=== PATIENT | female | born 1955 | race Caucasian/White ===

== ENCOUNTER 2017-07-18 08:09 | Emergency (ER) | payer SELFPAY ==
[~2017-07-18] VITALS: Ht 167.6 cm; Wt 53.0 kg
[~2017-07-18 08:09] MED LIST: DIAZ10 PO; METH40TA9 PO; REST30CA PO; SOMA350T PO
[2017-07-18 08:13] VITALS: BP 213/104; PULSE 97; RESP 16; TEMP 99; O2SAT 99
[2017-07-18 08:14] VITALS: BP 197/116; PULSE 91; RESP 18
[2017-07-18] MEDS ORDERED: ACETAMINOPHEN/HYDROcodone 325 MG/5 MG TAB PO ONE (08:45)
--- NOTE | 2017-07-18 08:46 | PD ---
HPI Chief Complaint: Injury Time Seen by Provider: 08:46 Travel History International Travel<30 days: No Contact w/Intl Traveler<30days: No Traveled to known affect area: No History of Present Illness HPI 62-year-old female presents emergency department complaint of left wrist pain after tripping and falling while doing laundry about 35 minutes to an hour ago. Says she turned to grab a basket and lost her balance and fell. She denies hitting her head or loss of consciousness. Denies neck pain or back pain. Denies paresthesias, loss of sensation to the affected extremity. Has not taken any medication or tried any treatments to alleviate her symptoms. Symptoms are moderate in severity. Patient's blood pressure is elevated in the ER. She denies history of hypertension and does not take medications. Denies chest pain, shortness of breath, abdominal pain, nausea, vomiting, headache, change in vision. No known allergies. Has no other medical complaints. No other modifying factors or associated signs and symptoms. PFSH Past Medical History Diminished Hearing: No Musculoskeletal: Yes (CHRONIC BACK PAIN) Tetanus Vaccination: > 5 Years Influenza Vaccination: No ?: Not Menopausal: Yes Past Surgical History Appendectomy: Yes Social History Alcohol Use: Yes (OCC) Tobacco Use: No Substance Use: No Allergies-Medications (Allergen,Severity, Reaction): Coded Allergies: No Known Allergies (Verified , 07/18/17) Reported Meds & Prescriptions Reported Meds & Active Scripts Active No Active Prescriptions or Reported Medications Review of Systems Except as stated in HPI: all other systems reviewed are Neg Physical Exam Narrative GENERAL: Well-nourished, well-developed female patient, in no acute distress SKIN: Warm and dry. HEAD: Atraumatic. Normocephalic. EYES: Pupils equal and round. No scleral icterus. No injection or drainage. ENT: Mucosa pink and moist. Airway patent. NECK: Moving freely. No tenderness on patient of the cervical spine. CARDIOVASCULAR: Regular rate. RESPIRATORY: No accessory muscle use. GASTROINTESTINAL: Flat. MUSCULOSKELETAL: Left wrist with tenderness on palpation; mildly edematous; without erythema, ecchymosis; no obvious deformity; unable to assess range of motion; sensory intact; 2+ radial pulse. Left upper extremity supple and non- tense. No obvious deformities. No clubbing. No cyanosis. BACK: No point tenderness on palpation of the thoracic or lumbar spine. NEUROLOGICAL: Awake and alert. Oriented 3. No obvious cranial nerve deficits. Motor grossly within normal limits. Normal speech. PSYCHIATRIC: Appropriate mood and affect; insight and judgment normal. Data Data Last Documented VS Vital Signs Date Time Temp Pulse Resp B/P (MAP) Pulse Ox O2 Delivery O2 Flow Rate FiO2 07/18/17 08:38 Room Air 07/18/17 08:14 91 18 197/116 (143) 07/18/17 08:13 99.0 99 Orders Orders Wrist, Complete ([id number]) (07/18/17 08:45) Acetamin-Hydrocod 325-5 Mg ([place] 5-325 (07/18/17 08:45) MDM Medical Decision Making Medical Screen Exam Complete: Yes Emergency Medical Condition: Yes Medical Record Reviewed: Yes Differential Diagnosis Fall, wrist sprain, wrist dislocation, wrist fracture, wrist injury Narrative Course 62-year-old female with left wrist injury after mechanical fall. Denies hitting her head or loss of consciousness. Denies neck pain or back pain. Lortab administered in the ER. Left wrist x-ray ordered. Patient's lipase is elevated in the ER. She denies history of hypertension and does not take medications. She is asymptomatic. Blood pressure will be rechecked. 0943: Left wrist x-ray concludes: Last 24 hours Impressions Wrist X-Ray 07/18/17 0845 Signed Impressions: Service Date/Time: Tuesday, July 18, 2017 09:19 - CONCLUSION: Soft tissue swelling without definite fracture. Frank Uriostegui MD A copy of the report was provided to the patient. Velcro wrist splint provider for support. Ibuprofen prescribed for home. Instructed patient to follow up with primary care provider. Patient verbalizes understanding and agreement with treatment plan. Patient is medically cleared and stable for discharge. Discussed reasons to return to the emergency department. Patient agrees with treatment plan. The patients vital signs are stable and the patient is stable for outpatient follow-up and treatment. Patient discharged home, stable and in no acute distress. Diagnosis Primary Impression: Fall Qualified Codes: W19.XXXA - Unspecified fall, initial encounter Additional Impression: Left wrist injury Qualified Codes: S69.92XA - Unspecified injury of left wrist, hand and finger( s), initial encounter Referrals: Primary Care Physician Patient Instructions: Fall Prevention (ED), General Instructions, Wrist Sprain (ED) Departure Forms: Tests/Procedures, Work Release Enter return to work date: Jul 25, 2017 Additional Instructions: Tylenol or ibuprofen as directed and as needed to reduce pain Rest, ice, compress, and elevate extremity to decrease pain and inflammation Jose wrap for support Wrist Splint for support Avoid aggravating activity; increase activity as tolerated Follow-up with primary care provider Return to the emergency department immediately with worsening symptoms Med/Other Pt SpecificInfo: Prescription(s) given Scripts Ibuprofen (Ibuprofen) 800 Mg Tab 800 MG PO Q8H Y for PAIN SCALE 1 TO 10, #30 TAB 0 Refills Prov: Niya Turner 07/18/17 Disposition: 01 DISCHARGE HOME Condition: Stable Niya Turner Jul 18, 2017 08:46
--- NOTE | 2017-07-18 09:37 | RADRPT ---
EXAM DATE/TIME: 07/18/2017 09:19 [facility] COMPARISON: No previous studies available for comparison. INDICATIONS : Fell this morning, pain 360 degrees around left wrist MEDICAL HISTORY : None. SURGICAL HISTORY : None. ENCOUNTER: Initial ACUITY: 1 day PAIN SCORE: 10/10 LOCATION: Left wrist FINDINGS: Three view examination of the left wrist demonstrates no soft tissue swelling, dislocation, or fractu re. Degenerative changes. Soft tissue swelling. Chondrocalcinosis. The carpal bones are in normal al ignment. The joint spaces are maintained. Bony mineralization is normal. CONCLUSION: Soft tissue swelling without definite fracture. Frank Uriostegui MD on July 18, 2017 at 9:33 Board Certified Radiologist. This report was verified electronically.
[2017-07-18] MEDS ORDERED: IBUP800T23 PO (09:45)
== END 2017-07-18 09:58 | disposition home or self-care (01) ==
LOC: NEPK 08:09
DX: S69.92XA Unspecified injury of left wrist, hand and finger(s), initial encounter (principal); W01.0XXA Fall on same level from slipping, tripping and stumbling without subsequent striking against object, initial encounter
CPT/HCPCS: 73110; 99283; L3908